=== PATIENT | female | born 1945 | race Native Hawaiian/Other Pacific Islander ===

== ENCOUNTER → 2016-10-20 | Outpatient (CLI) | payer MEDICARE, OTHER | END | disposition home or self-care (01) | LOC: GMAH 15:05 | PROVIDERS: ATTEND Family Medicine | DX: N39.0 Urinary tract infection, site not specified (principal) ==

== ENCOUNTER 2017-04-02 01:46 | Emergency (ER) | payer MEDICARE, OTHER ==
[2017-04-02 02:09] VITALS: TEMP 97.6; O2SAT 94
--- NOTE | 2017-04-02 03:00 | CT ---
EXAM DATE: 04/02/2017 2:12 AM [facility]. PROCEDURE: CT HEAD WITHOUT IV CONTRAST. INDICATION: Fall. COMPARISON: 09/03/2014. TECHNIQUE: Axial CT images of the head were acquired without intravenous contrast. This exam was performed according to our departmental dose-optimization program which includes use of Automated Exposure Control, adjustment of the mA and/or kV according to patient size and/or use of iterative reconstruction technique. FINDINGS: No acute intracranial hemorrhage. Focal encephalomalacia of the right parietal lobe compatible with prior ischemic insult. Remainder of brain demonstrates preserved lee-white matter differentiation. Mild generalized brain volume loss. Unremarkable orbits. Layering fluid within the left maxillary sinus. Mastoid air cells are clear. No calvarial fracture. IMPRESSION: No acute intracranial abnormality. Old ischemic changes of the right parietal lobe. Layering fluid within the left maxillary sinus may be seen with acute sinusitis in the correct clinical context. Electronically signed by: Stanislav Solorio MD 04/02/2017 2:59 AM [facility]
--- NOTE | 2017-04-02 03:40 | ED.PDOC ---
History of Present Illness - General Chief Complaint: Lower Extremity Injury Stated Complaint: Pain L foot Time Seen by Provider: 04/02/17 03:12 Exam Limitations: no limitations - History of Present Illness Initial Comments: LEFT FOOT PAIN, FALL. SHE JUST STARTED ON PARAFON FORTE, TOOK ONE AND THEN FELT DIZZY AND SUSTAINED A FALL INJURING HER LEFT LATERAL FOOT AND HIT HER HEAD. THERE WAS NO LOCBUT SHE IS HAVING PROBLEMS AMBULATING BECAUSE OF THE FOOT PAIN. Occurred: yesterday Pain - Lower Extremity: moderate: Left Foot Method of Injury: fell Improving Factors: nothing Worsening Factors: movement, other - BEARING WEIGHT Allergies/Adverse Reactions: Allergies Codeine Allergy (Verified 04/02/17 02:09) Protective Adhesive Powder Allergy (Verified 04/02/17 02:09) Hives adhesive tape Home Medications: Ambulatory Orders Chlorzoxazone [Parafon Forte DSC] 500 mg PO Q6HR PRN 04/02/17 Nebivolol HCl [Bystolic] 20 mg PO DAILY 04/02/17 Review of Systems - Review of Systems Constitutional: States: no symptoms reported EENTM: States: no symptoms reported Respiratory: States: no symptoms reported Cardiology: States: no symptoms reported Gastrointestinal/Abdominal: States: no symptoms reported Genitourinary: States: no symptoms reported Musculoskeletal: States: joint pain Skin: States: no symptoms reported Neurological: States: other - SHE WAS SLEEPY AND DROWSY AFTER SHE TOOK THE MEDICATION Endocrine: States: no symptoms reported Hematologic/Lymphatic: States: no symptoms reported All other Systems: Reviewed and Negative Past Medical History (General) - Patient Medical History Hx Seizures: No Hx Stroke: Yes Hx Dementia: No Hx Asthma: No Hx of COPD: No Hx Cardiac Disorders: No Hx Congestive Heart Failure: No Hx Pacemaker: No Hx Hypertension: Yes Hx Thyroid Disease: No Hx Diabetes: No Hx Gastroesophageal Reflux: No Hx Renal Disease: No Hx Cancer: No Hx of HIV: No Hx Hepatitis C: No Hx MRSA: No Surgical History: cholecystectomy, Hysterectomy - Vaccination History Hx Tetanus, Diphtheria Vaccination: No Hx Influenza Vaccination: No - Social History Hx Tobacco Use: Yes Cigarettes Packs Per Day: 1 Hx Alcohol Use: No Hx Substance Use: No Hx Substance Use Treatment: No Hx Depression: No Feels Threatened In Home Enviroment: No Feels Threatened In a Relationship: No - Female History Patient is a Female of Child Bearing Age (10 -59 yrs old): No Patient : No - Triage Comment ED Triage Comment: Pt was retriveing mail from her mailbox when she "tripped" and struck R foot on curb Family Medical History - Family History Mother Family History: No Known Physical Exam - Physical Exam General Appearance: Alert, Anxious, Well Developed, Well Groomed, Well Hydrated Eyes, Ears, Nose, Throat: PERRL/EOMI, normal ENT inspection Neck: non-tender, full range of motion, supple Cardiovascular/Respiratory: regular rate, rhythm, no M/R/G, normal peripheral pulses, no JVD Gastrointestinal/Abdominal: non-tender, no organomegaly, no hernia Back: normal inspection, no CVA tenderness, no vertebral tenderness Thigh/Hip: normal inspection Leg: normal inspection Knee: normal inspection Ankle: no evidence of injury, normal ROM Foot: other - TENDER TO THE LATERAL ASPECT OF THE DISTAL LEFT FOOT, PEDIAL PULSE PRESENT, NO DEFORMITY AND NO BRUISING Progress - Results/Orders Results/Orders: CT OF THE BRAIN IS NEGATIVE FOR ACUTE PROCESS. THE FOOT IS NOT READ BY THE RADIOLOGIST BUT SUSPICIOUS FOR FRACTURE OF THE PROXIMAL PHALANX LEFT FIFTH TOE. Departure - Departure Clinical Impression: Fracture of fifth toe, left, closed Time of Disposition: 03:45 Disposition: Discharge to Home or Self Care Condition: Good Departure Forms: ED Discharge - Pt. Copy, Patient Portal Self Enrollment Instructions: DI for Trauma, DI for Leg Pain, DI for Toe Fracture Activity: ambulate only with walker Referrals: Ramiro House MD [Primary Care Provider] - 1-2 Weeks Home Medications: Ambulatory Orders Chlorzoxazone [Parafon Forte DSC] 500 mg PO Q6HR PRN 04/02/17 Nebivolol HCl [Bystolic] 20 mg PO DAILY 04/02/17 Additional Instructions: HOLD THE PARAFON FORTE
[2017-04-02 04:05] VITALS: BP 136/84
--- NOTE | 2017-04-02 04:27 | RAD ---
EXAM: Three view(s) of the left foot. INDICATION: Pain. COMPARISON: None. FINDINGS: No acute fracture or dislocation. The bones are demineralized. There is a tiny plantar calcaneal spur. An os peroneum is noted. No large soft tissue swelling. IMPRESSION: 1. No acute fracture. Electronically signed by: Teto Melendez MD 04/02/2017 4:26 AM MANAGER ONLINE Workstation: [id number]
== END 2017-04-02 04:07 | disposition home or self-care (01) ==
LOC: ER 01:46
DX: S92.515A Nondisplaced fracture of proximal phalanx of left lesser toe(s), initial encounter for closed fracture (principal); I10 Essential (primary) hypertension; F17.210 Nicotine dependence, cigarettes, uncomplicated; Z86.73 Personal history of transient ischemic attack (TIA), and cerebral infarction without residual deficits; Z88.5 Allergy status to narcotic agent; Z79.899 Other long term (current) drug therapy; W01.0XXA Fall on same level from slipping, tripping and stumbling without subsequent striking against object, initial encounter; Y93.89 Activity, other specified; Y92.89 Other specified places as the place of occurrence of the external cause

== ENCOUNTER 2017-08-15 05:29 | Day surgery (SDC) | payer MEDICARE, OTHER ==
[2017-08-15] MEDS ORDERED: LIDOCAINE 1% PF 2 ML AMP INJ ONE (05:30)
[2017-08-15] MEDS ORDERED: TROP 1%/CYCLOPEN 1%/PHENYL 2% DROPS ONE (06:05)
[2017-08-15] MEDS: PROPARACAINE 0.5% OPHTH SOL 15 ML BTTL ONE ×2 (07:47→08:13)
[2017-08-15] MEDS: TOBRAMYCIN SULF 0.3 % OPHT SOL 1 DROP LEFT_EYE ONE ×2 (07:47→08:35)
[2017-08-15] MEDS ORDERED: MIDAZOLAM INJ 2 MG/2 ML VIAL IV ONE (08:20)
[2017-08-15] MEDS ORDERED: TOBRAMYCIN SULF 0.3 % OPHT SOL 1 DROP LEFT_EYE ONE (08:25)
[2017-08-15] MEDS ORDERED: DEXAMETHASONE 0.1% OPHTH SOL 1 DROP LEFT_EYE ONE ×2 (08:25→08:35)
[2017-08-15] MEDS ORDERED: BRIMONIDINE 0.2% OPHTH DROPS LEFT_EYE ONE ×2 (08:25→08:35)
[2017-08-15 10:01] VITALS: O2SAT 95
[2017-08-15 10:03] VITALS: BP 179/80; TEMP 96.5
== END 2017-08-15 09:36 | disposition home or self-care (01) ==
LOC: AMB 05:29
PROVIDERS: ATTEND Ophthalmology
DX: H25.12 Age-related nuclear cataract, left eye (principal); I10 Essential (primary) hypertension; K21.9 Gastro-esophageal reflux disease without esophagitis; F17.210 Nicotine dependence, cigarettes, uncomplicated; Z88.5 Allergy status to narcotic agent; Z79.82 Long term (current) use of aspirin; Z79.899 Other long term (current) drug therapy
CPT/HCPCS: 00142; 66984; J2250

== ENCOUNTER 2017-08-29 05:19 | Day surgery (SDC) | payer MEDICARE, OTHER ==
[2017-08-29] MEDS ORDERED: PROPARACAINE 0.5% OPHTH SOL 15 ML BTTL ONE (05:51)
[2017-08-29] MEDS ORDERED: TROP 1%/CYCLOPEN 1%/PHENYL 2% DROPS ONE (05:51)
[2017-08-29] MEDS ORDERED: MIDAZOLAM INJ 2 MG/2 ML VIAL ONE (08:51)
[2017-08-29] MEDS ORDERED: LIDOCAINE 1% PF 2 ML AMP INJ ONE (09:03)
[2017-08-29] MEDS ORDERED: TOBRAMYCIN SULF 0.3 % OPHT SOL 1 DROP RIGHT_EYE ONE ×2 (09:07→09:17)
[2017-08-29] MEDS ORDERED: DEXAMETHASONE 0.1% OPHTH SOL 1 DROP RIGHT_EYE ONE ×2 (09:07→09:17)
[2017-08-29] MEDS ORDERED: BRIMONIDINE 0.2% OPHTH DROPS RIGHT_EYE ONE ×2 (09:08→09:17)
== END 2017-08-29 09:46 | disposition home or self-care (01) ==
LOC: AMB 05:19
PROVIDERS: ATTEND Ophthalmology
DX: H25.11 Age-related nuclear cataract, right eye (principal); I10 Essential (primary) hypertension; E66.9 Obesity, unspecified; Z88.8 Allergy status to other drugs, medicaments and biological substances; Z79.82 Long term (current) use of aspirin; Z79.899 Other long term (current) drug therapy
CPT/HCPCS: 00142; 66984; J2250; V2786

== ENCOUNTER → 2018-01-18 | Outpatient (CLI) | payer MEDICARE, OTHER ==
--- NOTE | 2018-01-18 22:03 | US ---
Thyroid Ultrasound Biopsy CLINICAL INFORMATION: Palpable mass right thyroid lobe. No prior ultrasound.. TECHNIQUE: Procedure was explained to the patient with risks and benefits. The patient gave verbal and written consent. Sterile preparation draping. 1% xylocaine dermal anesthetic 9-1 mixture with sodium bicarbonate. Sterile ultrasound guidance. A total of 6 passes into right lobe nodule; 3 needle samplings with a separate 1.5 inch, 25-gauge needle per sample, and 3 aspirations, with a separate 1.5 inch, 25-gauge needle/10-cc syringe set, per aspiration. Each sample was placed on a separate slide and fixed in 95% alcohol container. Saccomanno fluid drawn into aspirate needle and rinse injected into Saccomanno container. Specimens to be sent for pathologic examination at remote facility. . Patient tolerated procedure well. Findings: Survey scanning performed of the right lobe prior to biopsy. Nodule 1: Size: 2.3 x 2.0 x 1.4 cm Location: Right Mid Composition: solid or almost completely solid: 2 points Echogenicity: hypoechoic: 2 points Shape: wider than tall: 0 points Margins: ill-defined: 0 points Echogenic foci: none: 0 points ACR Total Points: 4; ACR TI-RADS risk category: TR4 - moderately suspicious nodule. Recommend: Ultrasound-guided fine needle aspiration. Biopsy #: 1 Nodule reference number based on prior diagnostic ultrasound:1 Maximum size: 2.3 cm Location: right; mid ACR TI-RADS risk category: TR4 (4-6 points) Reason for biopsy: meets ACR TI-RADS criteria Complications: Yes minimal surface hemorrhage. IMPRESSION: Successful ultrasound guided fine needle aspiration and sampling of thyroid nodule. Electronically signed by: Eliel Walls MD 01/18/2018 10:02 PM CDT
== END ==
LOC: US 08:58
PROVIDERS: ATTEND Surgery
DX: E04.1 Nontoxic single thyroid nodule (principal)

== ENCOUNTER → 2018-03-07 | Outpatient (CLI) | payer MEDICARE, OTHER ==
--- NOTE | 2018-03-07 14:36 | MRI ---
EXAM DESCRIPTION: Brain w/wo Contrast: Magnetic Resonance Imaging. CLINICAL HISTORY: CANCER COMPARISON: Noncontrast brain MRI scan 09/05/2014. TECHNIQUE: Multiplanar, high-field MRI, multiple conventional sequences, without and with gadolinium IV contrast. No adverse reactions. Multiple axial diffusion sequences. FINDINGS: Again noted is area of encephalomalacia in the right occipital lobe and involving the cortical lee matter and subcortical white matter. Bright FLAIR signal indicating gliosis, extending to the posterior aspect of the occipital horn of the right lateral ventricle which is also dilated. No mass effect. Not associated with hemorrhage, abnormal contrast enhancement, or diffusion restriction. Multifocal bilateral regions of hyperintense FLAIR and T2-weighted signal in the periventricular white matter and lee-white matter junctions of the cerebral hemispheres. This pattern is relatively symmetric bilaterally. No significant change from the prior study. Prominent vessel in the left occipital lobe scanning from the cortex to the posterior horn of the lateral ventricle may represent part of a vascular malformation not well seen on the prior study due to lack of IV contrast. . Normal signal in the bilateral basal ganglia. No hemorrhage, no cerebral edema, no diffusion restriction. Normal contrast enhancement. Normal signal in the brainstem and cerebellar hemispheres. No hemorrhage, no cerebral edema, no diffusion restriction. Normal contrast enhancement. Concordance of the diffusion and non-diffusion sequences with no evidence of acute or subacute infarction. Cortical sulci, ventricles, and other CSF spaces, and the subdural spaces are normally configured. No effacement or displacement. No midline shift. No extra-axial hemorrhage. Normal contrast enhancement. Normal flow signal void in the major vessels of the atka Scherer, and the venous sinuses. IACs are symmetric bilaterally. Normal signal in the bilateral mastoid air cells. No mass effect in the bilateral Cerebellopontine angles. Normal contrast enhancement. Pituitary gland occupies most of the sella. Normal contrast enhancement. Base of the cerebellar tonsils is just above the foramen magnum. Scattered mucoperiosteal thickening in the paranasal sinuses. Mucous retention cyst versus polyp in the base of the left antrum. Also mucosal thickening in the anterior ethmoid air cells and frontal sinuses. The bony calvarium is intact. IMPRESSION: 1. Region of encephalomalacia in the right occipital lobe is more well-defined on the current study with associated ventricular enlargement, no mass effect. No diffusion restriction abnormal enhancement or hemorrhage. 2. Stable bilateral white matter findings consistent with cerebral microvascular disease and aging. No mass effect, no cerebral edema, no abnormal contrast enhancement. No diffusion restriction. 3. Paranasal sinusitis which appears progressive since the prior study. Electronically signed by: Eliel Walls MD 03/07/2018 2:35 PM [facility]
== END ==
LOC: MRI 09:00
PROVIDERS: ATTEND Internal Medicine
DX: C34.90 Malignant neoplasm of unspecified part of unspecified bronchus or lung (principal); G93.89 Other specified disorders of brain; J01.90 Acute sinusitis, unspecified

== ENCOUNTER → 2018-03-13 | Outpatient (CLI) | payer MEDICARE, OTHER ==
--- NOTE | 2018-03-14 10:32 | CT ---
EXAM DESCRIPTION: Chest w/Contrast CLINICAL HISTORY: 73 years, Female, C34.12 COMPARISON: Chest x-ray May 24, 2013 TECHNIQUE: Thin-section noncontrast axial CT images are obtained according to our protocol. Reconstructed MPR images are created and reviewed as well. FINDINGS: Lungs: Partially cavitary mass with infiltrative margins in the left upper lobe is seen with extension to the left pulmonary hilum. The posterior cavity contains fluid and gas and measures approximately 1.7 x 3.4 cm. The mass measures 7 x 4.4 cm on the axial images. On the coronal images, craniocaudal extent of the abnormality is 5.6 cm. Anterior bronchograms are seen extending into the medial aspect of the lesion. While this appearance could be seen with cavitary pneumonia or abscess formation, the clinical history is lung cancer and therefore a mass with central necrosis is most likely. Correlate with results of needle aspiration/biopsy. Additional small nodule is seen in the posterior basal segment left lower lobe which measures 6 mm. This could be metastasis or unrelated granulomatous nodule. Large calcified granuloma in the superior segment right lower lobe measures 1.4 cm. Scattered subpleural cysts are small in size and few in number. Mild centrilobular emphysematous changes in the upper lobes. Heart is prominent. No pericardial effusion. Mediastinum: Lymph nodes are normal in size. Enlarged node in the right hilum is measured 2.3 x 1.3 cm. Small node in the lateral AP window has a short axis dimension measurement of 5 mm. Normal vascular contours. Heart size is normal with no pericardial effusion. There is extensive coronary arterial calcification. Chest wall/axilla: No mass or adenopathy. Lower neck/supraclavicular: No mass or adenopathy. Lesion in the right thyroid lobe measures 1.9 cm. Sono is recommended. Upper abdomen: Unremarkable upper abdominal viscera. Findings are confirmed on the coronal and sagittal images. Prominent ascending aorta measures 3.1 cm. Right pulmonary artery is prominent measuring 2.5 cm. IMPRESSION: Partially cavitary mass in the left upper lobe with infiltrative margins measuring 7 x 4.4 x 5.6 cm. Additional 6 mm nodule in the posterior basal segment left lower lobe. Enlarged node in the left hilum. Right thyroid lesion 3.1 cm. This exam was performed according to our departmental dose-optimization program, which includes automated exposure control, adjustment of the mA and/or kV according to patient size and/or use of iterative reconstruction technique. Total DLP equals 293.15 mGycm. Electronically signed by: Socrates Delgado MD 03/14/2018 10:31 AM [facility]
== END ==
LOC: CT 14:23
PROVIDERS: ATTEND Internal Medicine Hematology & Oncology
DX: C34.12 Malignant neoplasm of upper lobe, left bronchus or lung (principal); E07.9 Disorder of thyroid, unspecified

== ENCOUNTER 2018-05-26 09:16 | Emergency (ER) | payer MEDICARE, OTHER ==
[2018-05-26 09:38] VITALS: TEMP 98.3
--- NOTE | 2018-05-26 09:41 | ED.PDOC ---
History of Present Illness - General Chief Complaint: Neuro Symptoms/Deficits Stated Complaint: stroke Time Seen by Provider: 05/26/18 09:36 Source: family Additional Information: 73 YEAR OLD BROUGHT TO THE HOSPITAL FOR EVALUATION INABILITY TO SPEAK ONSET 4 AM NOW IT IS 9.20 AM SHE HAS HISTORY OF TIA 2 YEARS AGO AND HAS HYPERTENSION PHYSICAL EXAM SHE IS UNABLE TO SPEAK BUT UNDERSTAND AND FOLLOWS VERBAL COMMANDS RIGHT SIDED FACIAL NERVE WEAKNESS NOTED WITH A DROOP MOTOR STRENGTH ALMOST EQUAL AND DTR BOTH SIDED NORMAL BABINSKIN NEG LUNGS CLEAR HEART NO MURMUR REG RATE 78 / MIN ABD SOFT BENIGN SHE HAS HISTORY OF CA LUNG LEFT UPPER LOBE DIAGNOSED IN MAR [address] CHEMO AND RADI[address] BELTRAN -ONCOLOGY THE EKG NSR CT HEAD NEG FOR BLEED OLD OCCIPITAL STROKE NO ABNORMALITY NOTED IN THE BROCAS AREA ON THE CT AT THIS TIME - History of Present Illness Allergies/Adverse Reactions: Allergies Codeine Allergy (Verified 04/02/17 02:09) Protective Adhesive Powder Allergy (Verified 04/02/17 02:09) Hives adhesive tape Home Medications: Ambulatory Orders Chlorzoxazone [Parafon Forte DSC] 500 mg PO Q6HR PRN 04/02/17 Nebivolol HCl [Bystolic] 20 mg PO DAILY 04/02/17 Aspirin [Aspirin EC Low Dose] 81 mg PO DAILY 08/15/17 Hydrochlorothiazide 12.5 mg PO DAILY 08/15/17 Review of Systems - Review of Systems Constitutional: States: no symptoms reported EENTM: States: no symptoms reported Respiratory: States: no symptoms reported Cardiology: States: no symptoms reported Gastrointestinal/Abdominal: States: no symptoms reported Genitourinary: States: no symptoms reported Musculoskeletal: States: no symptoms reported Skin: States: no symptoms reported Neurological: States: see HPI Endocrine: States: no symptoms reported Hematologic/Lymphatic: States: no symptoms reported Past Medical History (General) - Patient Medical History Hx Seizures: No Hx Stroke: Yes Hx Dementia: No Hx Asthma: No Hx of COPD: No Hx Cardiac Disorders: No Hx Congestive Heart Failure: No Hx Pacemaker: No Hx Hypertension: Yes Hx Thyroid Disease: No Hx Diabetes: No Hx Gastroesophageal Reflux: No Hx Renal Disease: No Hx Cancer: No Hx of HIV: No Hx Hepatitis C: No Hx MRSA: No - Vaccination History Hx Tetanus, Diphtheria Vaccination: No Hx Influenza Vaccination: No - Social History Hx Tobacco Use: Yes Hx Alcohol Use: No Hx Substance Use: No Hx Substance Use Treatment: No Hx Depression: No - Female History Patient : No Family Medical History - Family History Mother Family History: No Known Physical Exam - Physical Exam General Appearance: Alert, Comfortable Eye Exam: bilateral normal ENT Exam: normal ENT inspection, hearing grossly normal, TMs normal, pharynx normal Neck: non-tender, full range of motion Respiratory: chest non-tender, lungs clear, normal breath sounds, no respiratory distress, no accessory muscle use, respiratory distress Cardiovascular/Chest: normal peripheral pulses, regular rate, rhythm, no edema, no gallop, no JVD, no murmur Peripheral Pulses: radial,right: 2+, radial,left: 2+, femoral,right: 2+, femoral,left: 2+ Gastrointestinal/Abdominal: normal bowel sounds, non tender, soft, no organomegaly Extremities Exam: non-tender, normal range of motion Mental Status: alert, 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 3 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 Exam: abnormal speech, facial asymmetry Coordination/Gait: normal finger to nose Motor/Sensory: no motor deficit, no sensory deficit, no pronator drift, negative Babinski's sign DTR: 0: Babinski, left, Babinski, right, 3+: Biceps, left, Biceps, right, Triceps, left, Triceps, right, Brachioradialis, left, Brachioradialis, right, Achilles, left, Achilles, right, Patellar, left, Patellar, right Skin Exam: normal color, warm/dry Stroke Information - Onset of Symptoms Symptoms of Stroke: Aphasia Departure - Departure Clinical Impression: Broca's aphasia, Facial droop due to acute stroke, Cancer of lung, Cerebrovascular accident Time of Disposition: 10:10 Disposition: Transfer to Hospital Condition: Fair Departure Forms: ED Discharge - Pt. Copy, Patient Portal Self Enrollment Referrals: Ramiro House MD [Primary Care Provider] - 1-2 Weeks Home Medications: Ambulatory Orders Chlorzoxazone [Parafon Forte DSC] 500 mg PO Q6HR PRN 04/02/17 Nebivolol HCl [Bystolic] 20 mg PO DAILY 04/02/17 Aspirin [Aspirin EC Low Dose] 81 mg PO DAILY 08/15/17 Hydrochlorothiazide 12.5 mg PO DAILY 08/15/17 Transfer to Outside Facility - Transfer Information Accepting Provider:: DR STEPH PRITCHARD Accepting Facility: [facility]
--- NOTE | 2018-05-26 09:53 | CT ---
EXAM DESCRIPTION: Head: Computed Tomography. CLINICAL HISTORY: stroke. Unable to speak. COMPARISON: CT scan of the head 04/02/2017. TECHNIQUE: Non-helical axial scans through the skull and brain, at 5 x 5 mm intervals, non-contrast. Axial 2.5 x 20 mm reconstructions. Coronal and sagittal 2.0 mm reconstructions. Total Exam DLP: 967.47 mGy-cm. This exam was performed according to our departmental dose-optimization program which includes automated exposure control, adjustment of the mA and/or kV according to patient size and/or use of iterative reconstruction technique; to reduce radiation dose to as low as reasonably achievable (ALARA). Motion artifact on some of the axial images. FINDINGS: No hemorrhage, no mass-effect, and no midline shift. Old encephalomalacia from prior stroke right occipital lobe with prominence of the posterior right ventricular body and occipital horn. Also affecting the posterior right parietal lobe. Bilateral symmetric decreased white matter density frontal horns.. Specifically, no obvious lesion in the Broca's speech area of the frontal lobes. No abnormal radiodense material in the brain parenchyma. Vascular calcifications anterior; physiologic calcifications in the pineal gland and choroid plexus. No effacement or displacement of the ventricles, CSF spaces, or subdural spaces. Minimally prominent for patient's age. Similar to the prior study. No extra axial fluid collection or hemorrhage. No gross abnormalities of the bony calvarium. Air-fluid level left maxillary antrum. Also in the bilateral sphenoid air cells. Mastoid sinuses are unremarkable. IMPRESSION: 1. No hemorrhage, no mass effect, no midline shift. Encephalomalacia from previous CVA right occipital lobe, stable since the prior study. 2. CT scans are insensitive for detecting small CVAs in the first 24 hours after onset. Evaluation of the brain stem is also limited. If symptoms persist, consider NON-EMERGENT MRI scan of the brain with diffusion imaging. CRITICAL COMMUNICATION: The critical value was discussed directly by phone with Dr. Dickerson at approximately 945 hours, on May 26, 2018. Electronically signed by: Eliel Walls MD 05/26/2018 9:51 AM [employer]
[2018-05-26 10:04] VITALS: O2SAT 94
[2018-05-26 10:25] VITALS: BP 167/81
== END 2018-05-26 10:32 | disposition short-term general hospital (02) ==
LOC: ER 09:16
DX: I63.9 Cerebral infarction, unspecified (principal); R29.810 Facial weakness; R47.01 Aphasia; C34.90 Malignant neoplasm of unspecified part of unspecified bronchus or lung; I10 Essential (primary) hypertension; Z86.73 Personal history of transient ischemic attack (TIA), and cerebral infarction without residual deficits; Z87.891 Personal history of nicotine dependence; Z79.82 Long term (current) use of aspirin; Z79.899 Other long term (current) drug therapy; Z88.5 Allergy status to narcotic agent; Z88.8 Allergy status to other drugs, medicaments and biological substances

== ENCOUNTER 2018-12-02 18:40 | Emergency (ER) | payer MEDICARE, OTHER ==
--- NOTE | 2018-12-02 19:27 | CT ---
PROCEDURE: Pelvis CLINICAL HISTORY: 73 years Female left hip pain after fall TECHNIQUE: Contiguous axial images obtained through the pelvis without IV contrast. Coronal and sagittal reformatted images provided. This CT exam was performed according to our departmental dose-optimization program, which includes one or more of the following dose reduction techniques: automated exposure control, adjustment of the mA and/or kV according to patient size, and/or use of iterative reconstruction technique. COMPARISON: No prior exams provided for comparison. FINDINGS: There is an acute, impacted, transcervical fracture of the left femoral neck. No dislocation. No other acute fracture in the pelvis. 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 No evidence of avascular necrosis. Mild degenerative changes in the sacroiliac joints, left greater than right, with periarticular sclerosis in the left. Mild degenerative changes in the lower lumbar spine. Atherosclerosis without visualized aneurysm or pelvic sidewall hematoma. Prior hysterectomy. IMPRESSION: Acute, impacted, transcervical fracture of the left femoral neck. No other acute findings in the pelvis. Electronically signed by: Melvina Hough MD 12/02/2018 7:26 PM CDT
--- NOTE | 2018-12-02 19:28 | ED.PDOC ---
History of Present Illness - General Chief Complaint: Trauma Stated Complaint: hip pain, fall Time Seen by Provider: 12/02/18 18:48 Source: patient, family Exam Limitations: no limitations - History of Present Illness Initial Comments: Patient presents with left hip pain after a fall. She says that she lost her balance and fell onto her right hip. She complains of pain in the left hip and left femur. She arrived with the left hip in a flexed position because of the pain but extended it on her own. Her family says that she hit her head. She takes Plavix for a prior CVA and an ASA 81 mg each day. No other injuries nor complaints. Timing/Duration: 1-3 hours Severity: mild Improving Factors: rest Worsening Factors: movement Associated Symptoms: denies symptoms Allergies/Adverse Reactions: Allergies Codeine Allergy (Verified 04/02/17 02:09) Protective Adhesive Powder Allergy (Verified 04/02/17 02:09) Hives adhesive tape Home Medications: Ambulatory Orders Nebivolol HCl [Bystolic] 20 mg PO DAILY 04/02/17 Hydrochlorothiazide 25 mg PO DAILY 08/15/17 Aspirin [Baby Aspirin] 81 mg PO DAILY 12/02/18 Atorvastatin Calcium 40 mg PO DAILY 12/02/18 Clopidogrel Bisulfate 75 mg PO DAILY 12/02/18 Duloxetine HCl [Cymbalta] 60 mg PO DAILY 12/02/18 Gabapentin 100 mg PO TID 12/02/18 Review of Systems - Review of Systems Constitutional: States: no symptoms reported EENTM: States: no symptoms reported Respiratory: States: no symptoms reported Cardiology: States: no symptoms reported Gastrointestinal/Abdominal: States: no symptoms reported Genitourinary: States: no symptoms reported Musculoskeletal: States: see HPI Skin: States: no symptoms reported Neurological: States: no symptoms reported Endocrine: States: no symptoms reported Hematologic/Lymphatic: States: no symptoms reported Past Medical History (General) - Patient Medical History Hx Seizures: No Hx Stroke: Yes Hx Dementia: No Hx Asthma: No Hx of COPD: No Hx Cardiac Disorders: No Hx Congestive Heart Failure: No Hx Pacemaker: No Hx Hypertension: Yes Hx Thyroid Disease: No Hx Diabetes: No Hx Gastroesophageal Reflux: No Hx Renal Disease: No Hx Cancer: Yes - lung Hx of HIV: No Hx Hepatitis C: No Hx MRSA: No Surgical History: cholecystectomy, tonsillectomy, Hysterectomy - Vaccination History Hx Tetanus, Diphtheria Vaccination: No Hx Influenza Vaccination: No Hx Pneumococcal Vaccination: Yes - Social History Hx Tobacco Use: Yes Cigarettes Packs Per Day: 20 Hx Alcohol Use: No Hx Substance Use: No Hx Substance Use Treatment: No Hx Depression: No - Female History Patient is a Female of Child Bearing Age (10 -59 yrs old): No Patient : No - Triage Comment ED Triage Comment: on back board per EMS Family Medical History - Family History Mother Family History: No Known Physical Exam - Physical Exam General Appearance: Alert Eye Exam: bilateral normal Ears, Nose, Throat: normal ENT inspection Neck: non-tender, full range of motion, supple Respiratory: lungs clear, normal breath sounds Cardiovascular/Chest: normal peripheral pulses, regular rate, rhythm Gastrointestinal/Abdominal: normal bowel sounds, non tender, soft Back Exam: normal inspection, no CVA tenderness Extremity: other - Left hip is NTTP. Left femur is mildly TTP especially at the middle lateral third. Neurologic: alert, normal mood/affect, oriented x 3, other - speech deficit from prior CVA Progress - Progress Progress: 12/02/18 21:49 CT pelvis showed acute fracture of the left femoral neck. Patient was offered morphine upon arrival but declined. However, prior to transfer, she requested pain medications. She was given morphine 4 mg IV x one. Transferred to [facility] to Dr. Reyna. Departure - Departure Clinical Impression: Femur fracture, left Disposition: Transfer to Hospital Condition: Fair Departure Forms: ED Discharge - Pt. Copy, Patient Portal Self Enrollment Diet: other - NPO Activity: as per physical therapy Referrals: Raúl Davis MD [Primary Care Provider] - 1-2 Weeks Home Medications: Ambulatory Orders Nebivolol HCl [Bystolic] 20 mg PO DAILY 04/02/17 Hydrochlorothiazide 25 mg PO DAILY 08/15/17 Aspirin [Baby Aspirin] 81 mg PO DAILY 12/02/18 Atorvastatin Calcium 40 mg PO DAILY 12/02/18 Clopidogrel Bisulfate 75 mg PO DAILY 12/02/18 Duloxetine HCl [Cymbalta] 60 mg PO DAILY 12/02/18 Gabapentin 100 mg PO TID 12/02/18 Critical Care Note - Critical Care Note Total Time (mins): 60 Transfer to Outside Facility - Transfer Information Accepting Facility: [facility] Reason for Transfer: required specialist not available
--- NOTE | 2018-12-02 20:18 | RAD ---
EXAM DESCRIPTION: XR Femur, Left CLINICAL HISTORY: 73 years Female pain after fall TECHNIQUE: Two views of the left femur are provided. COMPARISON: No prior exams provided for comparison. FINDINGS: There is an acute, mildly impacted, transcervical fracture of the left proximal femur. No other acute fracture. No evidence of dislocation. No aggressive osseous lesion. IMPRESSION: Acute, mildly impacted, transcervical fracture of the left proximal femur. No evidence of dislocation. Electronically signed by: Melvina Hough MD 12/02/2018 8:17 PM CDT
--- NOTE | 2018-12-02 20:19 | RAD ---
EXAM DESCRIPTION: XR Knee, Left 1 or 2 Views CLINICAL HISTORY: 73 years Female pain after fall TECHNIQUE: Two views of the left knee are provided. COMPARISON: No prior exams provided for comparison. FINDINGS: There is no acute left knee fracture, dislocation, or suprapatellar joint effusion. The visualized joint spaces are preserved. Superior patellar enthesophyte. No aggressive osseous lesion. IMPRESSION: No acute findings in the left knee. Electronically signed by: Melvina Hough MD 12/02/2018 8:18 PM CDT
--- NOTE | 2018-12-02 20:21 | CT ---
PROCEDURE: CT Head CLINICAL HISTORY: 73 years Female fall, is on anticoagulants TECHNIQUE: Contiguous axial CT images obtained through the brain without IV contrast. This CT exam was performed according to our departmental dose-optimization program, which includes one or more of the following dose reduction techniques: automated exposure control, adjustment of the mA and/or kV according to patient size, and/or use of iterative reconstruction technique. COMPARISON: Comparison is made to the prior examination dated 05/26/2018. FINDINGS: There is no acute skull fracture, parenchymal hemorrhage, extraaxial collection, or acute transcortical infarction. Scattered areas of low attenuation within the periventricular white matter are stable and compatible with chronic microvascular disease. Stable chronic right posterior parietal infarct encephalomalacia. Age-appropriate diffuse volume loss without midline shift. Vascular calcifications are noted. Mild secretions in the right sphenoid sinus. The paranasal sinuses and mastoid air cells are otherwise clear. IMPRESSION: No acute intracranial abnormality. Stable exam. Electronically signed by: Melvina Hough MD 12/02/2018 8:20 PM CDT
[2018-12-02] MEDS ORDERED: MORPHINE SULFATE INJ 10 MG/ML VIAL IV ONE (21:15)
[2018-12-02] MEDS ORDERED: cefTRIAXone SODIUM 1 GM in SODIUM CHL 0.9% 50ML MIN-BAG+ 50 ML IVPB ONE (21:42)
[2018-12-02] MEDS ORDERED: cefTRIAXone SODIUM 1 GM VIAL ONE (21:48)
[2018-12-02] MEDS ORDERED: SODIUM CHL 0.9% 50ML MIN-BAG+ 50 ML IVPB ONE ×2 (21:48→21:50)
[2018-12-02] MEDS ORDERED: ONDANSETRON INJ 4 MG/2 ML VIAL ONE (21:48)
[2018-12-02] MEDS ORDERED: ONDANSETRON INJ 4 MG/2 ML VIAL IV ONE (22:01)
[2018-12-02 23:34] VITALS: BP 127/80; TEMP 97.1; O2SAT 95
== END 2018-12-02 23:34 | disposition short-term general hospital (02) ==
LOC: ER 18:40
DX: S72.032A Displaced midcervical fracture of left femur, initial encounter for closed fracture (principal); I10 Essential (primary) hypertension; I69.328 Other speech and language deficits following cerebral infarction; Z85.118 Personal history of other malignant neoplasm of bronchus and lung; Z79.899 Other long term (current) drug therapy; Z79.02 Long term (current) use of antithrombotics/antiplatelets; Z79.82 Long term (current) use of aspirin; W18.30XA Fall on same level, unspecified, initial encounter; Y93.01 Activity, walking, marching and hiking; Y92.89 Other specified places as the place of occurrence of the external cause
CPT/HCPCS: 70450; 72192; 73551; 73560; 81001; 87086; J0696; J2270; J2405; J7050